=== PATIENT | male | born 1995 | race Caucasian/White ===

== ENCOUNTER 2017-03-24 09:15 | Day surgery (SDC) | payer OTHER ==
[~2017-03-24] VITALS: Ht 172.7 cm; Wt 78.5 kg
[2017-03-24 09:55] VITALS: BP 129/87; PULSE 53; TEMP 98.3
[2017-03-24] MEDS ORDERED: VITAMIN D 1001000 IU PO (10:07)
[2017-03-24 11:40] VITALS: BP 133/70; PULSE 94; TEMP 97.6
[2017-03-24 11:45] VITALS: BP 124/77; PULSE 95
[2017-03-24 12:00] VITALS: BP 120/76; PULSE 97
[2017-03-24 12:15] VITALS: BP 121/63; PULSE 92
[2017-03-24 12:30] VITALS: BP 120/63; PULSE 89
== END 2017-03-24 13:16 | disposition home or self-care (01) ==
LOC: SDCO 09:15
DX: R19.7 Diarrhea, unspecified (principal); K21.9 Gastro-esophageal reflux disease without esophagitis; K90.0 Celiac disease
CPT/HCPCS: J2250; J2405; J3010; J7030